=== PATIENT | male | born 1945 | race Caucasian/White ===

== ENCOUNTER → 2017-03-16 | Outpatient (CLI) | payer MEDICARE ==
--- NOTE | 2017-03-16 19:05 | Diagnostic Imaging Report ---
PROCEDURE: US Thyroid. TECHNIQUE: Multiple real-time grayscale images were obtained of the thyroid in various projections. INDICATION: Follow-up thyroid nodules. COMPARISON: 08/30/2015. FINDINGS: The right thyroid lobe is 4 x 1.7 x 2 cm. The left lobe is 4.5 x 2.3 x 1.6 cm. In the inferior aspect of the right thyroid lobe, there is a nodule measuring 0.9 x 1 x 0.6 cm with partial cystic component and suggestion of internal debris seen. In the upper pole of the left thyroid lobe a solid isoechoic nodule measuring 0.6 x 0.8 x 0.5 cm is seen. This is similar to findings from August 2015. IMPRESSION: Stable bilateral small thyroid nodules. Dictated by: Dictated on workstation # [id number]
== END ==
LOC: RAD 10:51
PROVIDERS: ATTEND Nurse Practitioner Family
DX: E04.2 Nontoxic multinodular goiter (principal)
CPT/HCPCS: 76536